=== PATIENT | male | born 1995 | race Caucasian/White ===

== ENCOUNTER 2019-08-28 14:24 | Emergency (ER) | payer SELFPAY ==
[~2019-08-28] VITALS: Ht 162.6 cm; Wt 54.4 kg
[2019-08-28 14:25] VITALS: BP_SYST 119
--- NOTE | 2019-08-28 14:26 | NUR ---
Patient triaged and placed in waiting room. VSS and patient appears in no acute distress at this time. Accompanied by MOTHER, awaiting available bed, and MD notified of need for MSE.
--- NOTE | 2019-08-28 14:39 | NUR ---
PT STATES OFF AND ON ABDOMINAL PAIN WITH NAUSEA SINCE EATING SALMON 1 WEEK AGO. STATES ABD PAIN AFTER EATING ANYTHING, +ABDOMINAL CRAMPING.
--- NOTE | 2019-08-28 14:45 | NUR ---
DR DORSEY EVALUATING PT IN TRIAGE ROOM.
--- NOTE | 2019-08-28 15:22 | NUR ---
Patient given written and verbal discharge instructions and verbalizes understanding. ER MD discussed with patient the results and treatment provided. Patient in stable condition. ID arm band removed. Rx of ZOFRAN, AUGMENTING given. Patient educated on pain management and to follow up with PMD. Pain Scale 0/10. Opportunity for questions provided and answered. Medication side effect fact sheet provided.
== END 2019-08-28 15:22 | disposition home or self-care (01) ==
LOC: SED 14:24
DX: R11.2 Nausea with vomiting, unspecified (principal); R19.7 Diarrhea, unspecified
CPT/HCPCS: 99283